=== PATIENT | male | born 1990 | race American Indian/Alaskan Native ===

== ENCOUNTER 2016-10-18 23:00 | Emergency (ER) | payer SELFPAY ==
[2016-10-18 23:08] VITALS: BP 135/79
--- NOTE | 2016-10-19 00:57 | Emergency Department Report ---
ED Laceration HPI - HPI Chief Complaint: Laceration/Recheck/Suture Stated Complaint: LEFT PINKY FINGER LACERATION Time Seen by Provider: 10/19/16 00:38 Occurred When: Today Location: Upper Extremity Severity: mild Tetanus Status: Up to Date Laceration Symptoms: Yes Pain, No Foreign Body Sensation, No Numbness, No Weakness Other History: he is a 25-year-old male presents to the ED complaining of laceration to the left hand above his finger that happened today. Patient states he was at work using a knife when he got cut accidentally. He states minimal bleeding bleeding was controlled after incident. He states he is tetanus status up-to-date. He denies fevers/chills/valgus/vomiting/dizziness or any other problems. ED Review of Systems ROS: Stated complaint: LEFT PINKY FINGER LACERATION Other details as noted in HPI Constitutional: denies: chills, fever Eyes: denies: eye pain, eye discharge, vision change ENT: denies: ear pain, throat pain Respiratory: denies: cough, shortness of breath, wheezing Cardiovascular: denies: chest pain, palpitations Endocrine: no symptoms reported Gastrointestinal: denies: abdominal pain, nausea, vomiting, diarrhea Genitourinary: denies: urgency, dysuria Musculoskeletal: denies: back pain, joint swelling, arthralgia Skin: denies: rash, lesions Neurological: denies: headache, weakness, paresthesias Psychiatric: denies: anxiety, depression Hematological/Lymphatic: denies: easy bleeding, easy bruising ED Past Medical Hx - Past Medical History Previous Medical History?: No - Surgical History Past Surgical History?: No - Social History Smoking Status: Current Some Day Smoker Substance Use Type: Alcohol - Medications Home Medications: Home Medications Medication Instructions Recorded Confirmed Last Taken Type Cephalexin [Keflex] 500 mg PO BID #10 capsule 10/19/16 Unknown Rx Ibuprofen [Motrin] 800 mg PO Q8HR PRN #30 tablet 10/19/16 Unknown Rx Laceration Physical Exam - Exam General: Vital signs noted. No distress. Alert and acting appropriately. Wound Length (cm): 2 Laceration Location: Upper Extremity Full Body Front + Back: 1 - 2cm lac Laceration Exam: Yes Normal Distal CMS, No Foreign Body, No Exposed Tendon, Vessel, or Nerve, No Tendon Injury ED Course Vital Signs 10/18/16 23:04 Temperature 98.3 F Pulse Rate 73 Respiratory 20 Rate Blood Pressure 135/79 Blood Pressure 135/79 [Right] O2 Sat by Pulse 100 Oximetry - Laceration /Wound Repair Left Lower Posterior Distal Hand Wound Location: upper extremity Irrigated w/ Saline (ccs): 100 Betadine Prep?: Yes Anesthesia: 1% Lidocaine Volume Anesthetic (ccs): 4 Wound Repaired With: sutures Suture Size/Type: 5:0, proline Number of Sutures: 5 Layer Closure?: No Sterile Dressing Applied?: Yes ED Medical Decision Making - Medical Decision Making 25-year-old male presents with finger laceration ED course:The 2cm laceration wound was prepped and draped in sterile fashion. Anesthesia was achieved with 4mL of 1% lidocaine with a digital block. The wound was irrigated with 100cc NS and explored. There were no foreign bodies The wound was reapproximated in 1 layer with 5 sutures suing with 5-0 monofilament sutures in the dermis with interrupted sutures percutaneously. There was excellent reapproximation of the wound edges. The patient tolerated the procedure without complication. Discussed with the patient to return to ED for suture removal in 10-14 days Vital signs are stable patient is in no acute distress Critical care attestation.: If time is entered above; I have spent that time in minutes in the direct care of this critically ill patient, excluding procedure time. ED Disposition Clinical Impression: Finger laceration Qualifiers: Encounter type: initial encounter Finger: little finger Damage to nail status: without damage Foreign body presence: without foreign body Laterality: left Qualified Code(s): S61.217A - Laceration without foreign body of left little finger without damage to nail, initial encounter Disposition: - TO HOME OR SELFCARE Is pt being admited?: No Does the pt Need Aspirin: No Condition: Stable Instructions: Suture Care (ED), Suture Removal (ED), Finger Laceration (ED) Additional Instructions: Return to ED in 10 to 14 days for suture removal Take your medication as prescribed Prescriptions: Cephalexin [Keflex] 500 mg PO BID #10 capsule Ibuprofen [Motrin] 800 mg PO Q8HR PRN #30 tablet PRN Reason: Pain Referrals: PRIMARY CARE, [Primary Care Provider] - 3-5 Days [facility] [Outside] - 3-5 Days [facility] [Outside] - 3-5 Days [facility] [Outside] - 3-5 Days Forms: Accompanied Note, Work/School Release Form(ED) Time of Disposition: 01:42
[2016-10-19] MEDS ORDERED: TRIPLE ANTIBIOTIC TP ONE (00:58)
== END 2016-10-19 02:10 | disposition home or self-care (01) ==
LOC: ED 23:00
DX: S61.217A Laceration without foreign body of left little finger without damage to nail, initial encounter (principal); F17.210 Nicotine dependence, cigarettes, uncomplicated; W26.0XXA Contact with knife, initial encounter; Y93.89 Activity, other specified; Y92.89 Other specified places as the place of occurrence of the external cause; Y99.8 Other external cause status
CPT/HCPCS: 99282; A6250